=== PATIENT | male | born 1995 | race African-American/Black ===

== ENCOUNTER 2022-06-09 08:11 | Emergency (ER) | payer MEDICAID ==
[~2022-06-09] VITALS: Ht 180.3 cm; Wt 91.0 kg
[2022-06-09 08:21] VITALS: BP 110/66
[2022-06-09] MEDS ORDERED: ACETAMINOPHEN 325MG TABLET PO ONE (09:00)
[2022-06-09] MEDS ORDERED: [UNRECOGNIZED DRUG - CODE] PO (10:28)
[2022-06-09] MEDS ORDERED: TOPUD MT (10:28)
== END 2022-06-09 10:57 | disposition home or self-care (01) ==
LOC: ER 08:11
DX: J06.9 Acute upper respiratory infection, unspecified (principal); J45.909 Unspecified asthma, uncomplicated; F17.210 Nicotine dependence, cigarettes, uncomplicated
CPT/HCPCS: 71046; 82962; 99283